=== PATIENT | male | born 1995 | race Caucasian/White ===

== ENCOUNTER 2017-04-08 06:32 | Emergency (ER) | payer BC ==
[~2017-04-08] VITALS: Ht 188 cm; Wt 93.2 kg
[2017-04-08 06:32] VITALS: BP 157/61
[2017-04-08] MEDS ORDERED: TYLE325T5 PO (06:43)
== END 2017-04-08 07:03 | disposition left against medical advice (07) ==
LOC: M ED 06:32
DX: Z53.21 Procedure and treatment not carried out due to patient leaving prior to being seen by health care provider (principal)